=== PATIENT | female | born 1990 | race Two or more races ===

== ENCOUNTER 2023-05-29 18:52 | Emergency (ER) | payer OTHER ==
[~2023-05-29] VITALS: Ht 167.6 cm; Wt 63.5 kg
[2023-05-29 21:34] LABS: PH,URINE 5.5 (5.0-8.0); URINE APPEARANCE Clear; URINE BACTERIA 1399.8 uL (0.0-1933); URINE BILIRRUBIN Negative (NEGATIVE); URINE BLOOD Negative; URINE COLOR Yellow; URINE EPITHELIAL CELLS 14.2 uL (0.0-38.8); URINE GLUCOSE Negative (NEGATIVE); URINE LEUKOCYTE Negative; URINE NITRATE Negative; URINE PROTEIN Negative (NEGATIVE); URINE RBC 17.1 uL (0.0-20.8); URINE WBC 6.1 uL (0.0-23.2)
[2023-05-29 21:54] LABS: HEMATOCRIT 32.8 % (36.0-45.00); HEMOGLOBIN 11.1 g/dL (12.0-15.00); MEAN CELL VOLUME 93.1 fL (80.00-100.00); MEAN CORPUSCULAR HEMOGLOBIN 31.6 pg (27.00-32.0); PLATELET COUNT 186 K/uL (150-450); RED BLOOD COUNT 3.52 M/uL (4.00-6.00); RED CELL DISTRIBUTION WIDTH 14.5 % (11.5-14.5)
[2023-05-29 22:17] LABS: ALBUMIN 3.5 gm/dL (3.4-5.0); BILIRUBIN TOTAL 0.27 mg/dL (0.3-1.2); CALCIUM 8.8 mg/dL (8.5-10.1); CREATININE SERUM 0.46 mg/dL (0.55-1.02); GFR 159.5; GLOBULINA 3.7 G/DL (2.4-3.5); POTASSIUM 3.67 mEq/L (3.5-5.1); TOTAL PROTEIN 7.2 gm/dL (6.4-8.2)
== END 2023-05-30 01:26 ==
LOC: ER 18:52
PROVIDERS: Nurse Practitioner Family
DX: O26.892 Other specified pregnancy related conditions, second trimester (principal); R55 Syncope and collapse; Z3A.19 19 weeks gestation of pregnancy; Z88.0 Allergy status to penicillin